=== PATIENT | female | born 2000 | race Caucasian/White ===

== ENCOUNTER 2022-05-25 01:55 | Emergency (ER) | payer OTHER ==
[2022-05-25] MEDS ORDERED: SODIUM CHLORIDE 1,000 ML IV STA ×2 (02:09→03:18)
[2022-05-25] MEDS ORDERED: ONDANSETRON 4 MG/2 ML VIAL IVPUSH ONE (02:09)
[2022-05-25 02:26] VITALS: BP 128/88; PULSE 68; RESP 20; TEMP 98; BMI 28.1
[2022-05-25] MEDS ORDERED: METOCLOPRAMIDE HCL INJECTION 10 MG/2 ML VIAL ONE (02:31)
[2022-05-25] MEDS ORDERED: METOCLOPRAMIDE HCL INJECTION 10 MG/2 ML VIAL IVPB ONE (02:33)
== END 2022-05-25 04:32 | disposition home or self-care (01) ==
LOC: FER 01:55
PROC: 3E033GC Introduction of Other Therapeutic Substance into Peripheral Vein, Percutaneous Approach (ICD-10-PCS; principal; 2022-05-25)
DX: R11.2 Nausea with vomiting, unspecified (principal)
CPT/HCPCS: 99284-25